=== PATIENT | male | born 1985 | race African-American/Black ===

== ENCOUNTER 2017-11-08 09:58 | Emergency (ER) | payer SELFPAY ==
[~2017-11-08] VITALS: Ht 175.3 cm; Wt 71.0 kg
[2017-11-08 10:05] VITALS: BP 138/95; PULSE 82; RESP 18; TEMP 98.6; O2SAT 100
--- NOTE | 2017-11-08 10:15 | PD ---
HPI Chief Complaint: GI Complaint Time Seen by Provider: 10:12 Travel History International Travel<30 days: No Contact w/Intl Traveler<30days: No Traveled to known affect area: No History of Present Illness HPI 32-year-old male came to the emergency room with history of vomiting, diarrhea and abdominal pain that started since 1 AM. Patient says that he must have vomited almost 10 times and 3 or 4 episodes of diarrhea. No history of blood in his stool or vomit. Patient attributes this to possible food poisoning. He ate pizza, salad and a cheeseburger last night. His girlfriend is in the room who ate pizza and salad as well but has not been sick. Patient also has history of Crohn's disease. He has had bowel resection for his disease. Last vomit was at 8 this morning. Patient has drank a glass of water since then and has been able to keep it down. Vital signs are stable. He says his vomit was yellowish in color. Abdominal pain is generalized and moderate. No radiation. No aggravating or relieving factors identified PFS Past Medical History Narrative Medical List of his past medical, surgical, social and family history is reviewed from the nursing note. Allergies-Medications (Allergen,Severity, Reaction): Coded Allergies: No Known Allergies (Unverified , 11/08/17) Comments List of his allergies reviewed from the nursing note. Reported Meds & Prescriptions Reported Meds & Active Scripts Active Protonix (Pantoprazole Sodium) 40 Mg Tab 40 Mg PO DAILY Zofran Odt (Ondansetron Odt) 4 Mg Tab 4 Mg SL Q6HR PRN Flagyl (Metronidazole) 250 Mg Tab 250 Mg PO TID 10 Days Ciprofloxacin (Ciprofloxacin HCl) 500 Mg Tab 500 Mg PO BID 10 Days Reported Remicade Inj (Infliximab) 100 Mg Inj Unknown Dose IV DIRECTED Narrative Medication List of his home medications reviewed from the nursing note. Review of Systems Except as stated in HPI: all other systems reviewed are Neg Gastrointestinal: Positive: Nausea, Vomiting, Diarrhea, Abdominal Pain Physical Exam Narrative GENERAL: Awake, alert, mildest SKIN: Focused skin assessment warm/dry. HEAD: Atraumatic. Normocephalic. EYES: Pupils equal and round. No scleral icterus. No injection or drainage. ENT: No nasal bleeding or discharge. Mucous membranes pink and moist. NECK: Trachea midline. No JVD. CARDIOVASCULAR: Regular rate and rhythm. No murmur appreciated. RESPIRATORY: No accessory muscle use. Clear to auscultation. Breath sounds equal bilaterally. GASTROINTESTINAL: Abdomen soft, non-tender, nondistended. Hepatic and splenic margins not palpable. MUSCULOSKELETAL: No obvious deformities. No clubbing. No cyanosis. No edema. NEUROLOGICAL: Awake and alert. No obvious cranial nerve deficits. Motor grossly within normal limits. Normal speech. PSYCHIATRIC: Appropriate mood and affect; insight and judgment normal. Data Data Last Documented VS Vital Signs Date Time Temp Pulse Resp B/P (MAP) Pulse Ox O2 Delivery O2 Flow Rate FiO2 11/08/17 13:04 88 16 148/65 (92) 100 Room Air 11/08/17 10:05 98.6 Orders Orders Complete Blood Count With Diff (11/08/17 10:20) Comprehensive Metabolic Panel (11/08/17 10:20) Lipase (11/08/17 10:20) Ct Abd/Pel W Iv Contrast(Rout) (11/08/17 10:20) Iv Access Insert/Monitor (11/08/17 10:20) Ecg Monitoring (11/08/17 10:20) Oximetry (11/08/17 10:20) Ondansetron Inj (Zofran Inj) (11/08/17 10:30) Sodium Chlor 0.9% 1000 Ml Inj (Ns 1000 M (11/08/17 10:20) Sodium Chloride 0.9% Flush (Ns Flush) (11/08/17 10:30) Oral Contrast - Adult (11/08/17 10:28) Diatrizoate Liq ( Gastroview Liq) (11/08/17 10:49) Ketorolac Inj (Toradol Inj) (11/08/17 11:15) Iohexol 350 Inj (Omnipaque 350 Inj) (11/08/17 12:20) Pantoprazole Inj (Protonix Inj) (11/08/17 13:00) Ed Discharge Order (11/08/17 13:23) Ciprofloxacin (Cipro) (11/08/17 13:30) Metronidazole (Flagyl) (11/08/17 13:30) Labs Laboratory Tests Test 11/08/17 10:42 White Blood Count 10.8 TH/MM3 Red Blood Count 6.46 MIL/MM3 Hemoglobin 14.5 GM/DL Hematocrit 45.4 % Mean Corpuscular Volume 70.3 FL Mean Corpuscular Hemoglobin 22.5 PG Mean Corpuscular Hemoglobin Concent 32.0 % Red Cell Distribution Width 14.0 % Platelet Count 292 TH/MM3 Mean Platelet Volume 7.9 FL Neutrophils (%) (Auto) 69.9 % Lymphocytes (%) (Auto) 21.3 % Monocytes (%) (Auto) 7.3 % Eosinophils (%) (Auto) 0.3 % Basophils (%) (Auto) 1.2 % Neutrophils # (Auto) 7.6 TH/MM3 Lymphocytes # (Auto) 2.3 TH/MM3 Monocytes # (Auto) 0.8 TH/MM3 Eosinophils # (Auto) 0.0 TH/MM3 Basophils # (Auto) 0.1 TH/MM3 CBC Comment AUTO DIFF Differential Comment AUTO DIFF CONFIRMED Platelet Estimate NORMAL Platelet Morphology Comment NORMAL Target Cells 1+ Ovalocytes 1+ Blood Urea Nitrogen 10 MG/DL Creatinine 0.96 MG/DL Random Glucose 110 MG/DL Total Protein 8.4 GM/DL Albumin 4.0 GM/DL Calcium Level 9.5 MG/DL Alkaline Phosphatase 71 U/L Aspartate Amino Transf (AST/SGOT) 15 U/L Alanine Aminotransferase (ALT/SGPT) 26 U/L Total Bilirubin 0.6 MG/DL Sodium Level 142 MEQ/L Potassium Level 3.9 MEQ/L Chloride Level 107 MEQ/L Carbon Dioxide Level 30.0 MEQ/L Anion Gap 5 MEQ/L Estimat Glomerular Filtration Rate 90 ML/MIN Lipase 74 U/L [facility] Medical Decision Making Medical Screen Exam Complete: Yes Emergency Medical Condition: Yes Medical Record Reviewed: Yes Differential Diagnosis Small bowel obstruction, acute gastroenteritis, food poisoning, Crohn's flareup Narrative Course 11:35 AM awaiting for CAT scan to be done and resulted. Patient was given nausea medication, IV fluid and pain medication. Blood test results are back and within normal limits. 12:53 PM blood test results are back and within acceptable limits. CAT scan shows distal esophagitis with some skip lesions it sounds like. I will discuss with Dr. Rosenbaum and ask if there is any role for steroids. Waiting for her callback. I have ordered IV Protonix for the patient. 1:20 PM discussed the case with Dr. Saleem to from GI and she recommended to start the patient on Cipro and Flagyl. Patient is okay to go home and I will send him home on prescription for these antibiotics as well as Zofran and Protonix. Procedures EKG Prior to Arrival: No Physician Communication Physician Communication Dr. Rosenbaum Diagnosis Primary Impression: Vomiting Qualified Codes: R11.2 - Nausea with vomiting, unspecified Additional Impressions: Esophagitis Crohns disease Qualified Codes: K50.918 - Crohn's disease, unspecified, with other complication Referrals: Primary Care Physician Additional Instructions: Please follow-up with your GI specialist in 1-2 weeks. Take the medication as per the prescription direction. Take clear liquid diet for next 24-48 hours. Return to the ER if condition worsens or any other new concerns. Med/Other Pt SpecificInfo: Prescription(s) given Scripts Pantoprazole (Protonix) 40 Mg Tab 40 MG PO DAILY for Reflux, #30 TAB 0 Refills Prov: Maksim Schrader MD 11/08/17 Ondansetron Odt (Zofran Odt) 4 Mg Tab 4 MG SL Q6HR Y for Nausea/Vomiting, #30 TAB 0 Refills Prov: Maksim Schrader MD 11/08/17 Metronidazole (Flagyl) 250 Mg Tab 250 MG PO TID for Infection for 10 Days, TAB 0 Refills Prov: Maksim Schrader MD 11/08/17 Ciprofloxacin (Ciprofloxacin) 500 Mg Tab 500 MG PO BID for Infection for 10 Days, #20 TAB 0 Refills Prov: Maksim Schrader MD 11/08/17 Disposition: 01 DISCHARGE HOME Condition: Stable Maksim Schrader MD November 08, 2017 10:15
[2017-11-08] MEDS ORDERED: SODIUM CHLOR 0.9% 1000 ML INJ 1,000 ML IV SCH (10:20)
[2017-11-08] MEDS ORDERED: INFL100P IV (10:24)
[2017-11-08] MEDS ORDERED: SODIUM CHLORIDE 0.9% FLUSH 10 ML FLUSH IV FLUSH PRN (10:30)
[2017-11-08] MEDS ORDERED: ONDANSETRON HCL 4 MG/2 ML VIAL IVP ONE (10:30)
[2017-11-08 10:40] VITALS: O2SAT 98
[2017-11-08] MEDS ORDERED: DIATRIZOATE MEGLUM/DIATRIZOATE SOD 9 ML CUP ONE (10:49)
[2017-11-08 10:50] LABS: AUTOMATED NEUTROPHIL # 7.6 TH/MM3 (1.8-7.7); BASOPHIL # 0.1 TH/MM3 (0-0.2); BASOPHIL % 1.2 % (0.0-2.0); EOSINOPHIL % 0.3 % (0.0-4.0); HEMATOCRIT 45.4 % (39.0-51.0); HEMOGLOBIN 14.5 GM/DL (13.0-17.0); LYMPH % 21.3 % (9.0-44.0); LYMPHOCYTE # 2.3 TH/MM3 (1.0-4.8); MEAN CELL VOLUME 70.3 FL (80.0-100.0); MEAN CORPUSCULAR HEMOGLOBIN 22.5 PG (27.0-34.0); MEAN PLATELET VOLUME 7.9 FL (7.0-11.0); MONO % 7.3 % (0.0-8.0); MONOCYTE # 0.8 TH/MM3 (0-0.9); NEUT % 69.9 % (16.0-70.0); PLATELET COUNT 292 TH/MM3 (150-450); RED BLOOD COUNT 6.46 MIL/MM3 (4.50-5.90); WHITE BLOOD COUNT 10.8 TH/MM3 (4.0-11.0)
[2017-11-08 10:57] LABS: CHLORIDE 107 MEQ/L (98-107); SODIUM (NA) 142 MEQ/L (136-145)
[2017-11-08 11:01] LABS: BLOOD UREA NITROGEN 10 MG/DL (7-18); CALCIUM 9.5 MG/DL (8.5-10.1); GLUCOSE,RANDOM 110 MG/DL (74-106)
[2017-11-08 11:04] LABS: ALT (GPT) 26 U/L (12-78); AST (GOT) 15 U/L (15-37); CREATININE 0.96 MG/DL (0.60-1.30); GLOMERULAR FILTRATION RATE 90 ML/MIN (>89)
[2017-11-08 11:06] LABS: TOTAL BILIRUBIN ADULT 0.6 MG/DL (0.2-1.0); TOTAL PROTEIN 8.4 GM/DL (6.4-8.2)
[2017-11-08 11:07] LABS: ALKALINE PHOSPHATASE 71 U/L (45-117)
[2017-11-08] MEDS ORDERED: KETOROLAC TROMETHAMINE 30 MG/ML (IVP) VIAL IV PUSH ONE (11:15)
[2017-11-08 11:16] VITALS: BP 151/84; PULSE 65; RESP 16; O2SAT 99
[2017-11-08 11:57] LABS: TARGET CELLS 1+ (NORMAL)
[2017-11-08 11:58] LABS: OVALOCYTES 1+ (NORMAL)
[2017-11-08] MEDS ORDERED: IOHEXOL 350 MG/ML 10 ML VIAL (for RAD DIAG) IVCONTRAST ONE (12:20)
--- NOTE | 2017-11-08 12:43 | RADRPT ---
EXAM DATE/TIME: 11/08/2017 12:09 [place] COMPARISON: No previous studies available for comparison. INDICATIONS : Nausea, vomiting, and diarrhea. IV CONTRAST: 95 cc Omnipaque 350 (iohexol) IV ORAL CONTRAST: Prescribed oral contrast ingested. RADIATION DOSE: 6.25 CTDIvol (mGy) MEDICAL HISTORY : Crohn's disease. SURGICAL HISTORY : Partial intestine removal. ENCOUNTER: Initial ACUITY: 1 week PAIN SCALE: 0/10 LOCATION: pelvis abdomen TECHNIQUE: Volumetric scanning of the abdomen and pelvis was performed. Using automated exposure control and ad justment of the mA and/or kV according to patient size, radiation dose was kept as low as reasonably achievable to obtain optimal diagnostic quality images. DICOM format image data is available electro nically for review and comparison. FINDINGS: LOWER LUNGS: The visualized lower lungs are clear. LIVER: Homogeneous density without lesion. There is no dilation of the biliary tree. Small calci gallstone in the gallbladder. No pericholecystic inflammatory changes. SPLEEN: Normal size without lesion. PANCREAS: Within normal limits. KIDNEYS: Normal in size and shape. There is no mass, stone or hydronephrosis. ADRENAL GLANDS: Within normal limits. VASCULAR: There is no aortic aneurysm. BOWEL/MESENTERY: Prominent circumferential wall thickening of the distal esophagus. No evidence of bowel dilatation. P ossible wall thickening of several loops of mid small bowel. This finding is nonspecific as it is inc ompletely distended. Also possible wall thickening of the distal descending colon but this segment is also nondistended. No evidence of free air or free fluid. Appendix is not identified. ABDOMINAL WALL: Within normal limits. RETROPERITONEUM: There is no lymphadenopathy. BLADDER: No wall thickening or mass. REPRODUCTIVE: Within normal limits. INGUINAL: There is no lymphadenopathy or hernia. MUSCULOSKELETAL: Within normal limits for patient age. CONCLUSION: 1. Prominent circumferential wall thickening of the distal esophagus indicating esophagitis. 2. Equivocal wall thickening of mid small bowel and distal descending colon. These findings are nonsp ecific as these areas of bowel are nondistended. 3. Small calcified gallstone in the gallbladder. Rubén Keita MD on November 08, 2017 at 12:36 Board Certified Radiologist. This report was verified electronically.
[2017-11-08] MEDS ORDERED: PANTOPRAZOLE SODIUM 40 MG VIAL IV PUSH ONE (13:00)
[2017-11-08 13:04] VITALS: BP 148/65; PULSE 88; RESP 16; O2SAT 100
[2017-11-08] MEDS ORDERED: PROT40TA PO (13:22)
[2017-11-08] MEDS ORDERED: ZOFR4TAB3 SL (13:22)
[2017-11-08] MEDS ORDERED: METR250 PO (13:22)
[2017-11-08] MEDS ORDERED: CIPR500T2 PO (13:22)
[2017-11-08] MEDS ORDERED: metroNIDAZOLE 500 MG TAB PO ONE (13:30)
[2017-11-08] MEDS ORDERED: CIPROFLOXACIN 500 MG TAB PO ONE (13:30)
== END 2017-11-08 13:55 | disposition home or self-care (01) ==
LOC: PHED 09:58
DX: R11.2 Nausea with vomiting, unspecified (principal); K20.9 Esophagitis, unspecified; K50.90 Crohn's disease, unspecified, without complications
CPT/HCPCS: 74177; 80053; 83690; 85025; 96361; 96374; 96375; 99284; C9113; J1885; J2405; J7030; Q9963; Q9967